=== PATIENT | female | born 1965 | race Caucasian/White ===

== ENCOUNTER 2019-03-23 10:11 | Inpatient (IN) | payer OTHER, MEDICARE ==
[~2019-03-23] VITALS: Ht 160 cm; Wt 90.3 kg
[2019-03-23 11:30] VITALS: BP 144/78
[2019-03-23 13:12] LABS: ABSOLUTE BASOPHILS 0.1 thou/uL (0.0-0.2); ABSOLUTE EOSINOPHILS 0.1 thou/uL (0.0-0.7); ABSOLUTE MONOCYTES 1.4 thou/uL (0.0-1.2); ABSOLUTE NEUTROPHILS 8.6 thou/uL (1.6-8.1); BASOPHILS 0.7 %; EOSINOPHILS 0.4 %; HEMATOCRIT 43.5 % (37.0-47.0); HEMOGLOBIN 14.3 gm/dL (12.0-15.0); LYMPHOCYTES 16.5 %; MCH 28.9 pg (26.0-34.0); MCHC 32.8 g/dL (28.0-37.0); MCV 88.4 fL (80.0-100.0); MONOCYTES 11.5 %; MPV 7.4 fl. (7.2-11.1); NUCLEATED RBCS 0 /100WBC; PLATELET COUNT* 382 thou/uL (150-400); POLYS 70.9 %; RBC 4.92 mil/uL (4.20-5.00); RDW-CV 13.6 % (10.5-14.5); WBC 12.2 thou/uL (4.0-11.0)
[2019-03-23 13:30] LABS: ALBUMIN 3.7 g/dL (3.4-5.0); CALCIUM 9.5 mg/dL (8.5-10.1); CREATININE 0.6 mg/dL (0.6-1.3); MAGNESIUM 2.1 mg/dL (1.8-2.4); POTASSIUM 3.9 mmol/L (3.5-5.1); TOTAL BILIRUBIN 0.4 mg/dL (<0.1-1.0); TOTAL PROTEIN 7.4 g/dL (6.4-8.2)
[2019-03-23 15:33] VITALS: BP 152/95
[2019-03-23] MEDS ORDERED: OMEPRAZOLE40 MG PO (18:06)
[2019-03-23] MEDS ORDERED: OXYBUTYNIN CHLO10 MG PO (18:07)
[2019-03-23] MEDS ORDERED: CELEXA 20 MG TA20 MG PO (18:08)
[2019-03-23] MEDS ORDERED: TRAMADOL 50 MG50 MG PO (18:10)
[2019-03-23] MEDS ORDERED: ZANAFLEX4 M1 PO (18:11)
[2019-03-23] MEDS ORDERED: AMITIZA 24 MCG24 MCG PO (18:12)
[2019-03-23] MEDS ORDERED: BUPROPION XL300 MG PO (18:13)
[2019-03-23] MEDS ORDERED: NASACORT10.8 ML SPRAY (18:14)
[2019-03-23] MEDS ORDERED: PHENTERMINE H37.5 MG PO (18:16)
[2019-03-23] MEDS ORDERED: SAXENDA3 MG/0.5 M SUBQ (18:17)
[2019-03-23 19:47] LABS: URINE BILIRUBIN NEGATIVE (Negative); URINE BLOOD NEGATIVE (Negative); URINE CLARITY CLEAR; URINE COLOR YELLOW; URINE GLUCOSE-RANDOM NEGATIVE (Negative); URINE KETONES 1+ (Negative); URINE LEUKOCYTES-REFLEX NEGATIVE (Negative); URINE NITRITE-REFLEX NEGATIVE (Negative); URINE PROTEIN TRACE (Negative); URINE SPECIFIC GRAVITY 1.025 (1.005-1.030); URINE UROBILINOGEN 0.2 E.U./dl (0.2-1.0)
--- NOTE | 2019-03-23 20:19 | NUR ---
PT ARRIVED DIRECT ADMIT, PATIENT A&OX4, ST ON TELE, STAND BY ASSIST, ORIENTED TO ROOM. UA COLLECTED, PATIENT HAD LOOSE STOOL, HOURLY ROUNDING PERFORMED, POSSESSSIONS AND CALL LIGHT WITHIN REACH. PATIENT REPORTS MALAISE.
[2019-03-24] VITALS: BP 115/75
[2019-03-24 04:00] VITALS: BP 141/82
--- NOTE | 2019-03-24 07:55 | NUR ---
ASSUMED PATIENT CARE AT 1900. ASSESSMENT COMPLETED CHARTED. PATIENT IS ST/SR ON THE MONITOR. HOURLY ROUNDING IN PLACE FOR PATIENT SAFETY. CLWR.
[2019-03-24 08:00] VITALS: BP 142/86
[2019-03-24 10:38] LABS: CALCIUM 8.9 mg/dL (8.5-10.1); CREATININE 0.6 mg/dL (0.6-1.3); MAGNESIUM 1.8 mg/dL (1.8-2.4); POTASSIUM 3.4 mmol/L (3.5-5.1)
[2019-03-24 11:48] VITALS: BP 131/81
[2019-03-24 16:00] VITALS: BP 154/86
--- NOTE | 2019-03-24 18:10 | NUR ---
PT VSS, ST ON TELE, STAND BY ASSIST, HOURLY ROUNDING PERFORMED, POSSESSIONS AND CALL LIGHT WITHIN REACH. PATIENT AMBULATES TO TOILET.
[2019-03-24 19:30] VITALS: BP 134/70
[2019-03-25] VITALS: BP 142/77
--- NOTE | 2019-03-25 05:08 | NUR ---
PT CARE ASSUMED AT 1930. SAT MAINTAINED IN RA. ALERT AND ORIENTED X4. PT IS PAINFUL. CALL LIGHT WITHIN REACH AND BED IN LOW POSITION. HOURLY ROUNDING DONE FOR PT SAFETY.
[2019-03-25 05:25] LABS: CALCIUM 9.1 mg/dL (8.5-10.1); CREATININE 0.6 mg/dL (0.6-1.3); HEMATOCRIT 40.6 % (37.0-47.0); HEMOGLOBIN 13.2 gm/dL (12.0-15.0); MAGNESIUM 1.8 mg/dL (1.8-2.4); MCH 28.8 pg (26.0-34.0); MCHC 32.4 g/dL (28.0-37.0); MCV 88.9 fL (80.0-100.0); MPV 7.2 fl. (7.2-11.1); POTASSIUM 3.9 mmol/L (3.5-5.1); RBC 4.57 mil/uL (4.20-5.00); RDW-CV 13.3 % (10.5-14.5); WBC 11.5 thou/uL (4.0-11.0)
[2019-03-25 07:00] VITALS: BP 145/84
--- NOTE | 2019-03-25 08:08 | NUR ---
INITAL ASSESSMENT COMPLETED CHARTED. VSS. PT C/O CHRONIC 8/10 PAIN IN LOW BACK AND LEFT LEG. PT UP INDEPENDENTLY WITH STEADY GAIT. PT DENIES CP, SOA, N/V/D. HOURLY ROUNDING FOR PT SAFETY. CLWR.
[2019-03-25] MEDS ORDERED: FLORASTOR250 MG PO (08:49)
[2019-03-25] MEDS ORDERED: LEVAQUIN 750 M750 MG PO (08:49)
[2019-03-25 09:54] VITALS: BP 145/84
== END 2019-03-25 11:20 | disposition home or self-care (01) | DRG 690 ==
LOC: M.2W 10:11
PROVIDERS: Internal Medicine; ADMIT Internal Medicine
DX: N39.0 Urinary tract infection, site not specified (principal); R65.10 Systemic inflammatory response syndrome (SIRS) of non-infectious origin without acute organ dysfunction; K52.1 Toxic gastroenteritis and colitis; F11.20 Opioid dependence, uncomplicated; E44.1 Mild protein-calorie malnutrition; G89.29 Other chronic pain; E66.9 Obesity, unspecified; K21.9 Gastro-esophageal reflux disease without esophagitis; F32.9 Major depressive disorder, single episode, unspecified; T50.905A Adverse effect of unspecified drugs, medicaments and biological substances, initial encounter; Y92.89 Other specified places as the place of occurrence of the external cause; Z68.35 Body mass index [BMI] 35.0-35.9, adult; Z88.0 Allergy status to penicillin; Z88.2 Allergy status to sulfonamides; Z91.040 Latex allergy status; Z23 Encounter for immunization

== ENCOUNTER 2019-04-09 11:15 | Inpatient (IN) | payer OTHER, MEDICARE ==
[~2019-04-09] VITALS: Ht 152.4 cm; Wt 80.3 kg
--- NOTE | ~2019-04-09 | PROC ---
[address] [address] PROCEDURE REPORT Name: NAYE LEW Room: [address] IN ..#: [id number] Admission: 04/09/19 Attend Phys: Kisha Dahl Discharge: Date of : 63 Report #: [id number] THIS REPORT FOR: //name// For GI report, please see the Provation report in Perceptive 7 content. By: 0822Medical Records Staff DESMOND /CRISTINO
--- NOTE | ~2019-04-09 | CON ---
[facility] [address] [place] [address] CONSULTATION Name: NAYE LEW Room: [address] IN M.R.#: [id number] Admission: 04/09/19 Attend Phys: Kisha Dahl Discharge: Date of : 63 Report #: [id number] THIS REPORT FOR: //name// CC: SUSAN Galo DO DATE OF SERVICE: 04/13/2019 REFERRING PHYSICIAN: Elkin Whatley DO REASON FOR CONSULTATION: Severe dysphagia. IMPRESSION: 1. Severe dysphagia and odynophagia with history of recurrent nausea and vomiting. 2. Abnormal CAT scan with a dilated distal esophagus and stomach of uncertain significance. 3. Chronic acid reflux with no previous upper endoscopy being done in the past. 4. Anemia of uncertain etiology. 5. Chronic constipation, exacerbated by chronic narcotics with the patient never having a colonoscopy in the past. 6. Complicated urinary tract infection. 7. Chronic cough. RECOMMENDATIONS: 1. We will proceed with upper endoscopy today. I have discussed the nature, risks, benefits and alternatives of the procedure with the patient as well and she is agreeable to the same. 2. Further recommendation will be made after the upper endoscopy has been completed. HISTORY OF PRESENT ILLNESS: The patient is a pleasant 54-year-old white female, who was admitted to the hospital with complaint that she is not feeling well. She has been treated for urinary tract infection and started having problem with chronic cough, stomach issues, body aches and it was felt that maybe she had the flu. Since being in the hospital, she has also developed issues with dysphagia and painful odynophagia. She does have chronic reflux, for which she takes omeprazole on a regular basis with a fairly good response, but this has been different. It has been difficult for her to swallow liquids as well as solids. She feels the things are not going down very well. She denies any nausea, vomiting, hematemesis, hematochezia. She has tendency towards constipation, for which she takes Amitiza to help with the same. She has never undergone previous studies of her upper and lower GI tract in the past. We are asked to see her for complaints [place] [address] CONSULTATION Name: NAYE LEW Room: [address] IN [facility]#: [id number] Admission: 04/09/19 Attend Phys: Kisha Dahl Discharge: Date of : 63 Report #: [id number] ALLERGIES: PENICILLIN, SULFA AND TAPE. MEDICATIONS: At this time include lisinopril, omeprazole, Celexa, tramadol, Zanaflex, Amitiza 24 mcg at bedtime, bupropion, Nasacort, phentermine, Saxenda, and omeprazole. PAST MEDICAL AND SURGICAL HISTORY: Remarkable for underlying hypertension, chronic pain syndrome, chronic constipation, exacerbated by chronic pain medicines. She has had previous low back injury and morphine pump. SOCIAL HISTORY: She quit smoking over a year ago, does not drink alcohol on a regular basis. FAMILY HISTORY: Negative. PHYSICAL EXAMINATION: GENERAL: A pleasant 54-year-old white female, who is awake and alert. CARDIOPULMONARY: Revealed a regular rate and rhythm. LUNGS: Clear. ABDOMEN: Soft and not tender. No rebound or guarding noted. LABORATORY DATA: Laboratory tests from 3rd revealed a white count of 8.4, hemoglobin of 8.8, platelet count 255,000, MCV 87.6, and RDW is 13.2. Her sodium 143, potassium 3.1, chloride 106, bicarbonate is 27, BUN is 9, creatinine is 0.6. Her bilirubin is 0.2, alkaline phosphatase is 65, AST 33, ALT 39, and albumin is only 2.2. CT scan of the abdomen and pelvis performed on 04/09/2019 revealed a fluid-filled distended esophagus and stomach of uncertain significance. DISCUSSION: At the present time, the patient has not only dysphagia, but odynophagia. We will proceed with upper endoscopy today and make further recommendations thereafter. By: [id number] Fernando Koenig DO /nt
[~2019-04-09 11:15] MED LIST: AMITIZA 24 MCG24 MCG PO; BUPROPION XL300 MG PO; CELEXA 20 MG TA20 MG PO; FLORASTOR250 MG PO; LEVAQUIN 750 M750 MG PO; NASACORT10.8 ML SPRAY; OMEPRAZOLE40 MG PO; OXYBUTYNIN CHLO10 MG PO; PHENTERMINE H37.5 MG PO; SAXENDA3 MG/0.5 M SUBQ; TRAMADOL 50 MG50 MG PO; ZANAFLEX4 M1 PO
[2019-04-09 11:19] VITALS: BP 85/49
[2019-04-09] MEDS ORDERED: ZESTRIL5 MG PO (11:22)
[2019-04-09 12:01] LABS: ABSOLUTE LYMPHOCYTES 1.9 thou/uL (0.8-5.3); ABSOLUTE MONOCYTES 1.2 thou/uL (0.0-1.2); ABSOLUTE NEUTROPHILS 12.2 thou/uL (1.6-8.1); BASOPHILS 0.2 %; HEMATOCRIT 38.6 % (37.0-47.0); HEMOGLOBIN 12.8 gm/dL (12.0-15.0); LYMPHOCYTES 12.3 %; MCH 29.2 pg (26.0-34.0); MCV 88.2 fL (80.0-100.0); MONOCYTES 7.8 %; MPV 7.4 fl. (7.2-11.1); NUCLEATED RBCS 0 /100WBC; PLATELET COUNT* 269 thou/uL (150-400); POLYS 79.7 %; RBC 4.38 mil/uL (4.20-5.00); RDW-CV 13.5 % (10.5-14.5); WBC 15.3 thou/uL (4.0-11.0)
[2019-04-09 12:12] LABS: CALCIUM 8.5 mg/dL (8.5-10.1); CREATININE 4.5 mg/dL (0.6-1.3)
[2019-04-09 12:13] LABS: PROTIME 10.3 Seconds (9.20-11.50)
[2019-04-09 12:21] LABS: ALBUMIN 3.4 g/dL (3.4-5.0); TOTAL BILIRUBIN 0.1 mg/dL (<0.1-1.0)
[2019-04-09 13:00] LABS: INFLUENZA A ANTIGEN Negative (Negative); INFLUENZA B ANTIGEN Negative (Negative)
[2019-04-09 17:02] VITALS: BP 94/62
[2019-04-09 18:00] VITALS: BP 106/54
--- NOTE | 2019-04-09 18:22 | NUR ---
ASSUMED PT CARE. PT ADMITTED FROM ER AT 1710 ACCOMPANIED BY ER NURSEO N BED. ON 4 L NC. PT O2 SATURATIOIN IS 93%. O2 TITRATED TO 3 LNC. VSS. TRACING SINUS TACHYCARDIA ON THE HEART MONITOR. HEART RATE 116. COMPLAINS OF APIN IN BACK LEVEL 8. ATE DINER AT BEDSIDE. ZOFRAN GIVEN PRIOR TO DINER. UA RESULT PENDING. NO FURTHER COMPLAINT. SEPSIS SCREENING. FALL PRECAUTION IN PLACE. CALL LIGHT AT REACH . WILL CONTINUE TO MONITOR
[2019-04-09 18:27] LABS: URINE BILIRUBIN NEGATIVE (Negative); URINE BLOOD 3+ (Negative); URINE CLARITY CLOUDY; URINE COLOR YELLOW; URINE GLUCOSE-RANDOM NEGATIVE (Negative); URINE KETONES TRACE (Negative); URINE LEUKOCYTES-REFLEX NEGATIVE (Negative); URINE NITRITE-REFLEX NEGATIVE (Negative); URINE PROTEIN 1+ (Negative); URINE SPECIFIC GRAVITY 1.025 (1.005-1.030); URINE UROBILINOGEN 0.2 E.U./dl (0.2-1.0)
[2019-04-09 18:35] LABS: HYALINE CASTS >10 Many /LPF (None Seen); MUCUS 0-3 Light strn/LPF (None Seen); SQUAMOUS >10 Many /LPF (0-3)
[2019-04-09 18:36] LABS: CRYSTALS None Seen /LPF (None Seen); URINE RBC 3-10 Few /HPF (0-2); URINE WBC-REFLEX 0-5 Rare /HPF (0-5)
--- NOTE | 2019-04-09 18:39 | NUR ---
TRAMADOL GIVEN FOR PAIN.
[2019-04-09 19:50] VITALS: BP 99/53
[2019-04-10] VITALS (7 sets, daily range): BP systolic 91–137; BP diastolic 47–81
[2019-04-10 04:39] LABS: ABSOLUTE LYMPHOCYTES 2.1 thou/uL (0.8-5.3); ABSOLUTE MONOCYTES 1.2 thou/uL (0.0-1.2); ABSOLUTE NEUTROPHILS 10.4 thou/uL (1.6-8.1); BASOPHILS 0.1 %; HEMATOCRIT 27.9 % (37.0-47.0); LYMPHOCYTES 15.4 %; MCH 29.7 pg (26.0-34.0); MCHC 32.9 g/dL (28.0-37.0); MCV 90.2 fL (80.0-100.0); MONOCYTES 8.6 %; MPV 7.3 fl. (7.2-11.1); NUCLEATED RBCS 0 /100WBC; POLYS 75.9 %; RBC 3.09 mil/uL (4.20-5.00); RDW-CV 13.3 % (10.5-14.5); WBC 13.7 thou/uL (4.0-11.0)
--- NOTE | 2019-04-10 04:48 | NUR ---
PT CARE ASSUMED AT 1930. SAT MAINTAINED IN O2. ALERT AND ORIENTED X4. C/O PAIN, MEDICATION GIVEN PER EMAR. CALL LIGHT WITHIN REACH AND BED IN LOW POSITION. PT'S BP IS ON THE SOFTER SIDE. HOURLY ROUNDING DONE FOR PT SAFETY.
[2019-04-10 04:54] LABS: ALBUMIN 2.2 g/dL (3.4-5.0); CALCIUM 7.2 mg/dL (8.5-10.1); POTASSIUM 4.5 mmol/L (3.5-5.1); TOTAL BILIRUBIN 0.1 mg/dL (<0.1-1.0); TOTAL PROTEIN 4.8 g/dL (6.4-8.2)
[2019-04-10 05:16] LABS: HEMOGLOBIN 9.2 gm/dL (12.0-15.0); PLATELET COUNT* 189 thou/uL (150-400)
[2019-04-10 05:44] LABS: CREATININE 1.7 mg/dL (0.6-1.3)
--- NOTE | 2019-04-10 10:13 | NUR ---
Pt is A&O. Resides at home with her . Independent. No DME. No hx of HH or SNF. Pt states that her PCP wants her to have HH at dc, d/t repeated hospitalizations. CM provided Pt with a HH list from her insurance website, Pt to let CM know which agency she wants to use. Following.
--- NOTE | 2019-04-10 13:09 | EKG ---
[place] [address] ELECTROCARDIOGRAM REPORT Name: NAYE LEW Room: [address] ADM IN [facility].#: [id number] Admission: 04/09/19 Attend Phys: Kisha Dahl Discharge: Date of : 63 Report #: [id number] THIS REPORT FOR: //name// 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: : 1965 Requested By: Ric Ramesh Order Number: [id number] MD: Lito Pickard Measurements Intervals [place] Rate: 121 P: 39 TN: 115 QRS: 80 QRSD: 98 T: -1 QT: 329 QTc: 467 Interpretive Statements Sinus tachycardia Borderline T abnormalities, inferior leads No previous ECG available for comparison Electronically Signed On 04-10-2019 13:09:13 SANITATION OFFICER by Lito Pickard [email or web address] <ELECTRONICALLY SIGNED> By: Lito Pickard MD, [facility] 04/10/19 1309 D: [id number] 20 Lito Pickard MD, FACC /EPI
--- NOTE | 2019-04-10 18:41 | NUR ---
PATIENT RESTING IN BED. VSS. IV FLUIDS PER ORDERS. PAITNET VERY TIRED TODAY. IV ABX PER ORDERS. HOURLY ROUNDING FOR PATINET SAFETY.
[2019-04-11] VITALS: BP 94/54
[2019-04-11 03:41] LABS: CALCIUM 7.3 mg/dL (8.5-10.1); POTASSIUM 3.7 mmol/L (3.5-5.1); TOTAL BILIRUBIN 0.2 mg/dL (<0.1-1.0); TOTAL PROTEIN 4.8 g/dL (6.4-8.2)
[2019-04-11 03:42] LABS: ABSOLUTE LYMPHOCYTES 2.3 thou/uL (0.8-5.3); ABSOLUTE MONOCYTES 1.1 thou/uL (0.0-1.2); ABSOLUTE NEUTROPHILS 7.4 thou/uL (1.6-8.1); BASOPHILS 0.2 %; EOSINOPHILS 0.2 %; HEMATOCRIT 25.6 % (37.0-47.0); HEMOGLOBIN 8.6 gm/dL (12.0-15.0); LYMPHOCYTES 21.1 %; MCH 29.6 pg (26.0-34.0); MCHC 33.4 g/dL (28.0-37.0); MCV 88.8 fL (80.0-100.0); MONOCYTES 10.2 %; MPV 7.2 fl. (7.2-11.1); NUCLEATED RBCS 0 /100WBC; PLATELET COUNT* 184 thou/uL (150-400); POLYS 68.3 %; RBC 2.89 mil/uL (4.20-5.00); WBC 10.8 thou/uL (4.0-11.0)
[2019-04-11 03:54] LABS: CREATININE 0.7 mg/dL (0.6-1.3)
[2019-04-11 04:00] VITALS: BP 135/83
--- NOTE | 2019-04-11 04:34 | NUR ---
PT IN BED, RESTING. PT REMAINS EXTREMELY WEAK. PT SR/ST ON MONITOR. CONTINUES ON MAINTENANCE IVFs AND ABX. PT STILL REQUIRING 3L O2 PER NC.
[2019-04-11 07:42] VITALS: BP 128/89
--- NOTE | 2019-04-11 07:47 | CON ---
[address] [address] CONSULTATION Name: NAYE LEW Room: [address] IN .R.#: [id number] Admission: 04/09/19 Attend Phys: Kisha Dahl Discharge: Date of : 63 Report #: [id number] THIS REPORT FOR: //name// CC: Cecy Whatley DATE OF SERVICE: 04/10/2019 INFECTIOUS DISEASE CONSULTATION ATTENDING PHYSICIAN: Elkin Whatley DO REASON FOR EVALUATION: Relapsing urinary tract infection, also has suspected pneumonitis. HISTORY OF PRESENT ILLNESS: Chart reviewed, patient examined. This is a 54-year-old woman, who is disabled due to chronic back pain with morphine pump, some degree of depression, who states a series of issues dating back to February. She was hospitalized apparently with a complicated urinary tract infection. She did initially receive systemic antibiotics, including levofloxacin and seemed to respond only to have appeared to be a relapse. She was retreated. She states she has never really resolved her symptoms of dysuria. Does have ongoing back pain. It is more severe than usual; however, more recently during this hospitalization, which was prompted by significant right-sided chest pain, it was seemed to be worsened with deep breathing, perhaps consistent pleuritic in nature and had weakness and ongoing cough productive of some colored sputum, nausea, vomiting, emesis. She was dyspneic. She was empirically started on cefepime and levofloxacin. She has not been febrile. She is not encephalopathic. Overall, she is a little improved over the course of 24 hours. ALLERGIES: LISTED TO PENICILLIN AND SULFA. CURRENT MEDICINES: Include cefepime, vancomycin, methylprednisolone, lisinopril, bupropion, citalopram, pantoprazole, p.r.n. analgesics, antiemetics, tizanidine. PAST MEDICAL HISTORY: Includes above noted chronic back pain, disability, depression, reflux. SOCIAL HISTORY: Former smoker. No ethanol. No illicit drug use. FAMILY HISTORY: Noncontributory. REVIEW OF SYSTEMS: Otherwise unremarkable with the exception [place] [address] CONSULTATION Name: NAYE LEW Room: [address]#: [id number] Admission: 04/09/19 Attend Phys: Kisha Dahl Discharge: Date of : 63 Report #: [id number] PHYSICAL EXAMINATION: GENERAL: Iatqwlwz-ga-fgvbdf distress. It is clear she has pain with any sort of breathing on the right side. Appears slightly malnourished. VITAL SIGNS: Temperature 98.8, pulse 96, respirations 20, blood pressure 108/52. SKIN: Warm. I do not appreciate any rashes. HEENT: Normocephalic. Extraocular muscles intact. NECK: Supple. LUNGS: Few scattered coarse breath sounds. HEART: Borderline tachycardic, seems to be irregular. I do not appreciate a murmur. There is no rubs. ABDOMEN: Soft, mild tenderness. There are no peritoneal signs. EXTREMITIES: Distal lower extremities were otherwise unremarkable. GENITOURINARY AND RECTAL: Deferred. LABORATORY DATA: Blood cultures sterile thus far. Most recent electrolytes: Sodium 136, potassium 4.5, chloride 105, bicarb is 23, anion gap of 8, BUN and creatinine 59 and 1.7, is actually down from 4.5 on admission. Glucose of 77. AST of 60, ALT of 36. Total protein of 4.8, albumin of 2.2. Estimated GFR of 31. CBC: White count of 13.7, H and H 9.2 and 27.9, and platelets of 189. Does have a total lymphocyte count of 2100. Troponin less than 0.06. Urinalysis: 1+ protein, 3+ blood, 0-5 white cells. Lactic acid initially 2.1, repeat was 1.9. Influenza antigen was negative. CT abdomen and pelvis showed mild bibasilar pulmonary infiltrates or atelectasis. Normal appearance of the kidneys. No renal or ureteral stone are no hydronephrosis or obstructive uropathy. ASSESSMENT: 1. Complicated urinary tract infection. It is not clear as to exactly why it has been so difficult to treat. We do not have any culture evidence. I think the cefepime should give us good coverage, including Pseudomonas. There is certainly a number of Gram-negative quinolone resistant. Urine culture is in progress. We will await those results. 2. Pneumonitis, although it is somewhat confusing. Changes suggest perhaps left-sided, but she is also exclusively right-sided signs and symptoms, certainly raises question of some sort of occult process. We will continue to evaluate for possible early varicella zoster and thoracic dermatome. Also, we will do CT of the chest to exclude some underlying issue that may suggest more pleuritic-type pain. Indeed if this is viral, it would be more symptomatic. We will continue empiric antibacterial at this point. She is not overtly toxic, but clear she is ill. Continue supportive symptomatic treatment. <ELECTRONICALLY SIGNED> By: Dalton Garcia MD 04/11/19 0747 [id number] [id number] Garcia MD /nt
[2019-04-11 16:46] VITALS: BP 138/82
--- NOTE | 2019-04-11 17:17 | NUR ---
PATIENT RESTING IN BED. VSS. IV FLUIDS AND ANTIBIOTICS INFUSING. COUGH WITH OCCASIONAL WHEEZES. 3L PER NASAL CANULA. HOULRY ROUNDING COMPLETED FOR PATIENT SAFETY.
[2019-04-11 20:00] VITALS: BP 141/84
[2019-04-12] VITALS (7 sets, daily range): BP systolic 103–155; BP diastolic 55–88
[2019-04-12 04:58] LABS: ABSOLUTE EOSINOPHILS 0.1 thou/uL (0.0-0.7); ABSOLUTE LYMPHOCYTES 2.3 thou/uL (0.8-5.3); ABSOLUTE MONOCYTES 0.8 thou/uL (0.0-1.2); ABSOLUTE NEUTROPHILS 5.2 thou/uL (1.6-8.1); BASOPHILS 0.2 %; EOSINOPHILS 1.2 %; HEMATOCRIT 26.4 % (37.0-47.0); HEMOGLOBIN 8.7 gm/dL (12.0-15.0); LYMPHOCYTES 27.1 %; MCHC 32.9 g/dL (28.0-37.0); MONOCYTES 9.3 %; MPV 7.2 fl. (7.2-11.1); NUCLEATED RBCS 0 /100WBC; PLATELET COUNT* 227 thou/uL (150-400); POLYS 62.2 %; RDW-CV 13.2 % (10.5-14.5); WBC 8.4 thou/uL (4.0-11.0)
[2019-04-12 05:30] LABS: ALBUMIN 2.2 g/dL (3.4-5.0); CALCIUM 7.3 mg/dL (8.5-10.1); CREATININE 0.6 mg/dL (0.6-1.3); TOTAL BILIRUBIN 0.2 mg/dL (<0.1-1.0); TOTAL PROTEIN 5.3 g/dL (6.4-8.2)
--- NOTE | 2019-04-12 06:30 | NUR ---
AWAKE OFF AND ON DURING NOC, C/O NAUSEA FIRST PART OF SHIFT, ZOFRAN 4MG IVP GIVEN AND EFFECTIVE PER PT VERBALIZATION, C/O BACK PAIN AND LLE PAIN, MORPHINE 2MG X2 IVP AND ULTRAM 50MG PO X1 HELPFUL FOR PAIN MANAGEMENT, C/O SORE THROAT THIS AM, THROAT PAIN WORSE WITH SWALLOWING FEELS LIKE LIQUID AND FOOD "GETTING STUCK" AND CAUSING INCREASED PAIN, UP TO BR WITH SLOW STEADY GAIT, OXYGEN 3L PER NC, DENIES SOA, NSR HR 80'S TO 90'S TRACING APPLIQUE CUTTER, AFEBRILE, NS 150CC/HR VIA INFUSION PUMP PER ORDER, NO ADVERSE EFFECTS IV ABT'S NOTED, GLUCOSE 66 PER LAB DRAW THIS AM, RECHECKED VIA GLUCOMETER RESULT-63, REFUSING ORANGE JUICE, TOLERATED APPLE JUICE AND CRANBERRY JUICE, RECHECKED FSBS, GLUCOSE INCREASED TO 79, AWAKE, ALERT AND CONVERSATIVE THIS AM. CALL LIGHT IN REACH.
--- NOTE | 2019-04-12 14:06 | NUR ---
CONTINUE TO FOLLOW, MET WITH PT. STATES STILL NOT BACK TO BASELINE. DISCUSSED HH AND SHE CHOSE [facility] OR [facility]. CALLED [facility], THEY DECLINED D/T NOT ACCEPTING COMMERCIAL INSURANCE AT THIS TIME. CALL TO [facility], FAXED INITIAL REFERRAL TO [facility]. THEY ACCEPT [employer] AND WILL TAKE [place] AT [place]. WILL FOLLOW
--- NOTE | 2019-04-12 18:40 | NUR ---
PT UP TO BATHROOM INDEPENDENTLY. PT C/O PAIN WHEN SWALLOWING, PAIN IN LEG AND NAUSEA TODAY, PRN MEDICATIONS GIVEN PER ORDER.
[2019-04-13] VITALS (7 sets, daily range): BP systolic 111–144; BP diastolic 59–89
--- NOTE | 2019-04-13 02:00 | NUR ---
ASSUMED CARE OF PT AT 1900. PT IS ALERT AND ORIENTED. VSS. PERRLA. PT IS ON 3 LITERS OF O2. PT REPORTS ONGOING PAIN. PT RECIEVING MORPHINE FOR PAIN. PT IS IN SINUS RYTHM ON THE TELEMETRY. PT IS RESTING COMFORTABLY IN BED. RESPIRATIONS ARE EVEN AND NONLABORED. WILL CONTINUE TO MONITOR PT.
[2019-04-13 05:52] LABS: ABSOLUTE EOSINOPHILS 0.1 thou/uL (0.0-0.7); ABSOLUTE LYMPHOCYTES 2.6 thou/uL (0.8-5.3); ABSOLUTE MONOCYTES 0.9 thou/uL (0.0-1.2); ABSOLUTE NEUTROPHILS 4.7 thou/uL (1.6-8.1); BASOPHILS 0.4 %; EOSINOPHILS 1.6 %; HEMATOCRIT 26.3 % (37.0-47.0); HEMOGLOBIN 8.8 gm/dL (12.0-15.0); LYMPHOCYTES 30.8 %; MCH 29.4 pg (26.0-34.0); MCHC 33.6 g/dL (28.0-37.0); MCV 87.6 fL (80.0-100.0); MONOCYTES 11.1 %; NUCLEATED RBCS 0 /100WBC; PLATELET COUNT* 255 thou/uL (150-400); POLYS 56.1 %; RDW-CV 13.2 % (10.5-14.5); WBC 8.4 thou/uL (4.0-11.0)
[2019-04-13 06:00] LABS: CALCIUM 7.1 mg/dL (8.5-10.1); CREATININE 0.6 mg/dL (0.6-1.3); POTASSIUM 3.1 mmol/L (3.5-5.1)
[2019-04-13 06:16] LABS: PREALBUMIN 13.7 mg/dL (18.0-35.7)
--- NOTE | 2019-04-13 09:34 | NUR ---
ASSUMED CARE OF PT AT 0730. PT LYING IN BED. NPO FOR GI CONSULT. PLAN IS FOR EGD AT 1000. CONSENT SIGNED AND PLACED IN FRONT OF CHART. PACU STAFF HERE TO GET PT AT THIS TIME. A&0X4, COMPLAINS OF CHRONIC BACK PAIN- PAIN PUMP IN PLACE AND LIDOCAINE PATCH PLACED TO BACK WELL. PT GIVEN PAIN MEDICATION BY NOC SHIFT WITH PARTIAL RELIEF. TRACING SR ON THE HAT CHECKER. ON 2L NC SAT 95%. DENIES ANY SHORTNESS OF BREATH. IVF. PT UP AD VILMA IN ROOM. PT GOAL FOR TODAY IS PAIN MGMT, EGD, REPLACE POTASSIUM AND MAGNESIUM PER ELECTROLYTE PROTOCOL. AM ASSESSMENT CHARTED. MEDICATIONS PER JUN. PT REPOSITIONS SELF. HOURLY ROUNDING OBSERVED. BED IN LOW POSITION. CALL LIGHT WITHIN REACH. WILL CONTINUE PLAN OF CARE.
--- NOTE | 2019-04-13 14:36 | NUR ---
CONTINUE TO FOLLOW, PT NOT READY FOR DC TODAY, BUT WILL NEED HH AT DC THEY WILL NEED CALLED AND ORDERS FAXED TO: [facility] [phone] FAX [phone]
--- NOTE | 2019-04-13 19:05 | NUR ---
NO ACUTE CHANGES THROUGHOUT SHIFT.REFER TO CHARTING. PT HAD EGD TODAY-REFER TO RESULTS. PT STARTED ON PROTONIX, CARAFATE, DIFLUCAN AND ACYCLOVIR. NEW IV PLACED TO RIGHT FOREARM. PT MADE MED SURG STATUS. CONTINUES TO BE ON 2L NC SAT UPPER 90'S. DENIES ANY SHORTNESS OF BREATH. PT COMPLAINED OF NAUSEA THIS AFTERNOON-TREATED WITH PRN ZOFRAN WITH RELIEF. PT COMPLAINED OF PAIN TO BACK AND LLE LATE AFTERNOON-TREATED WITH PRN TRAMADOL WITH PARTIAL RELIEF. IVF. POTASSIUM AND MAGNESIUM BEING REPLACED PER ELECTROLYTE PROTOCOL. PT TOLERATING FULL LIQUIDS WELL. SLOWLY PROGRESSING TOWARDS GOALS. MEDICATIONS PER JUN. PT REPOSITIONS SELF. HOURLY ROUNDING OBSERVED. BED IN LOW POSITION. CALL LIGHT WITHIN REACH. WILL CONTINUE PLAN OF CARE.
[2019-04-14] VITALS: BP 130/58
[2019-04-14 04:35] LABS: ABSOLUTE BASOPHILS 0.1 thou/uL (0.0-0.2); ABSOLUTE EOSINOPHILS 0.2 thou/uL (0.0-0.7); ABSOLUTE LYMPHOCYTES 3.5 thou/uL (0.8-5.3); ABSOLUTE MONOCYTES 1.3 thou/uL (0.0-1.2); ABSOLUTE NEUTROPHILS 5.2 thou/uL (1.6-8.1); BASOPHILS 0.8 %; EOSINOPHILS 2.3 %; HEMATOCRIT 27.2 % (37.0-47.0); HEMOGLOBIN 9.2 gm/dL (12.0-15.0); LYMPHOCYTES 34.1 %; MCH 29.5 pg (26.0-34.0); MCHC 33.7 g/dL (28.0-37.0); MCV 87.7 fL (80.0-100.0); MONOCYTES 12.8 %; MPV 6.8 fl. (7.2-11.1); NUCLEATED RBCS 0 /100WBC; PLATELET COUNT* 312 thou/uL (150-400); RDW-CV 13.3 % (10.5-14.5); WBC 10.4 thou/uL (4.0-11.0)
[2019-04-14 04:48] LABS: ALBUMIN 2.6 g/dL (3.4-5.0); CALCIUM 7.9 mg/dL (8.5-10.1); CREATININE 0.7 mg/dL (0.6-1.3); TOTAL BILIRUBIN 0.2 mg/dL (<0.1-1.0); TOTAL PROTEIN 5.9 g/dL (6.4-8.2)
[2019-04-14 04:49] LABS: POTASSIUM 4.4 mmol/L (3.5-5.1)
[2019-04-14 06:16] LABS: ESR (SEDRATE) 45 mm/hr (0-30)
--- NOTE | 2019-04-14 07:53 | NUR ---
PT IS ABLE TO COMMUNICATE HER NEEDS TO STAFF EFFECTIVELY. CURRENT PAIN MEDICATION REGIMEN HAS BEEN MARGINALLY ADEQUATE FOR CONTROLLING HER PAIN UP TO THIS TIME; SHE HAS BEEN ASKING FOR PRN PAIN MEDS WHEN THEY ARE DUE. MED/SURG, NON-TELEMETRY STATUS AT THIS TIME. FULL LIQUIDS RIGHT NOW; MD MAY DECIDE TO ADVANCE DIET TODAY. POSSIBLE DISCHARGE TODAY.
[2019-04-14 08:00] VITALS: BP 120/82
[2019-04-14] MEDS ORDERED: ROXICODONE15 M1 PO (09:40)
[2019-04-14 12:00] VITALS: BP 126/76
[2019-04-14 16:00] VITALS: BP 135/95
--- NOTE | 2019-04-14 16:06 | NUR ---
ASSUMED CARE OF PT AT 0730. PT RESTING IN BED WAITING FOR BREAKFAST. A&0X4, COMPLAINED OF PAIN TO BACK AND LEFT LEG- TREATED WITH PRN MORPHINE WITH PARTIAL RELIEF. PT STATES SHE ALSO TAKES OXYCODONE 15MG PO Q6H PRN FOR BREAKTHROUGH PAIN AT HOME. PT COMPLAINED OF NAUSEA THIS AFTERNOON-TREATED WITH PRN ZOFRAN WITH RELIEF. MED SURG STATUS. ON 2L NC SAT 95%. PRN DULCOLAX GIVEN PT STATES SHE HASNT HAD A BOWEL MOVEMENT IN 5 DAYS. PT DIET ADVANCED TO SOFT- PT TOLERATING WELL. IVF. PT UP AD VILMA IN ROOM. PT GOAL FOR TODAY IS PAIN AND NAUSEA MGMT, IV ANTIBIOTICS, IVF AND REPLACING MAGNESIUM PER ELECTROLYTE PROTOCOL. AM ASSESSMENT CHARTED. MEDICATIONS PER MAR. PT REPOSITIONS SELF. HOURLY ROUNDING OBSERVED. BED IN LOW POSITION. CALL LIGHT WITHIN REACH. WILL CONTINUE PLAN OF CARE.
[2019-04-14 20:44] VITALS: BP 135/71
[2019-04-14 23:58] VITALS: BP 110/64
[2019-04-15 06:17] LABS: ABSOLUTE EOSINOPHILS 0.2 thou/uL (0.0-0.7); ABSOLUTE MONOCYTES 1.4 thou/uL (0.0-1.2); ABSOLUTE NEUTROPHILS 5.8 thou/uL (1.6-8.1); BASOPHILS 0.4 %; EOSINOPHILS 2.1 %; HEMATOCRIT 26.4 % (37.0-47.0); HEMOGLOBIN 8.9 gm/dL (12.0-15.0); LYMPHOCYTES 28.5 %; MCH 29.8 pg (26.0-34.0); MCHC 33.8 g/dL (28.0-37.0); MCV 88.1 fL (80.0-100.0); MONOCYTES 13.5 %; MPV 7.2 fl. (7.2-11.1); NUCLEATED RBCS 0 /100WBC; PLATELET COUNT* 336 thou/uL (150-400); POLYS 55.5 %; RDW-CV 13.5 % (10.5-14.5); WBC 10.5 thou/uL (4.0-11.0)
[2019-04-15 06:26] LABS: ALBUMIN 2.5 g/dL (3.4-5.0); CALCIUM 8.1 mg/dL (8.5-10.1); CREATININE 0.6 mg/dL (0.6-1.3); POTASSIUM 4.1 mmol/L (3.5-5.1); TOTAL BILIRUBIN 0.1 mg/dL (<0.1-1.0); TOTAL PROTEIN 5.5 g/dL (6.4-8.2)
[2019-04-15 08:00] VITALS: BP 125/62
--- NOTE | 2019-04-15 08:21 | NUR ---
PT IS ABLE TO COMMUNICATE HER NEEDS TO STAFF EFFECTIVELY. CURRENT PAIN MEDICATION REGIMEN HAS BEEN ADEQUATE FOR CONTROLLING HER PAIN UP TO THIS TIME; SHE DID AVOID TAKING ANY IV MORPHINE OVERNIGHT. POSSIBLE DISCHARGE LATER TODAY.
--- NOTE | 2019-04-15 09:00 | NUR ---
ASSUMED CARE OF PT AT 0730. PT RESTING IN BED. A&0X4, COMPLAINS OF PAIN TO HEAD-TREATED WITH PRN MORPHINE WITH PARTIAL RELIEF. ALTERNATIVE MEASURES USED WELL- HEATING PAD AND REPOSITIONING. PT MED SURG STATUS- ON 2L NC SAT UPPER 90'S. DENIES ANY SHORTNESS OF BREATH. PT UP AD VILMA IN ROOM. IVF. PT STATES SHE HAD A BOWEL MOVEMENT LAST NIGHT. IVF. PT GOAL FOR TODAY IS GI AND ID CONSULT IN PLACE, TITRATE OXYGEN, WORK WITH PHYSICAL THERAPY AND PAIN MGMT. AM ASSESSMENT CHARTED. MEDICATIONS PER JUN. PT REPOSITIONS SELF. HOURLY ROUNDING OBSERVED. BED IN LOW POSITION. CALL LIGHT WITHIN REACH. WILL CONTINUE PLAN OF CARE.
[2019-04-15 12:00] VITALS: BP 140/85
[2019-04-15 16:00] VITALS: BP 132/79
--- NOTE | 2019-04-15 18:38 | NUR ---
CTA RESULTS BACK- BILATERAL LOWER LOBE PULMONARY EMBOLI NOTED. DR RAMIREZ NOTIFIED. ORDERS RECEIVED TO START ELIQUIS BID, BILATERAL VENOUS ULTRASOUND TO LE'S AND ECHO. PT CONTINUES TO BE ON 2L NC SAT UPPER 90'S. TRACING SR/ST ON THE WASTE MACHINE OFFBEARER. IVF DISCONTINUED-SL. MEDICATIONS PER JUN. PT REPOSITIONS SELF. HOURLY ROUNDING OBSERVED. BED IN LOW POSITION. CALL LIGHT WITHIN REACH. WILL CONTINUE PLAN OF CARE.
[2019-04-15 19:50] VITALS: BP 134/73
[2019-04-16] VITALS: BP 97/54
--- NOTE | 2019-04-16 03:18 | NUR ---
ASSUMED CARE OF PT AT 1900. PT IS ALERT AND ORIENTED. VSS. PERRLA. PT IS UP AD VILMA. PT IS IN SINUS RYTHM ON THE TELEMETRY. PT IS RESTING COMFORTABLY IN BED. RESPIRATIONS ARE EVEN AND NONLABORED. WILL CONTINUE TO MONITOR PT.
[2019-04-16 04:00] VITALS: BP 127/79
[2019-04-16 04:51] LABS: ABSOLUTE EOSINOPHILS 0.2 thou/uL (0.0-0.7); ABSOLUTE LYMPHOCYTES 3.1 thou/uL (0.8-5.3); ABSOLUTE MONOCYTES 1.2 thou/uL (0.0-1.2); BASOPHILS 0.4 %; EOSINOPHILS 1.8 %; HEMATOCRIT 26.6 % (37.0-47.0); HEMOGLOBIN 9.1 gm/dL (12.0-15.0); LYMPHOCYTES 36.7 %; MCH 30.4 pg (26.0-34.0); MCHC 34.3 g/dL (28.0-37.0); MCV 88.6 fL (80.0-100.0); MONOCYTES 14.4 %; MPV 6.8 fl. (7.2-11.1); NUCLEATED RBCS 0 /100WBC; PLATELET COUNT* 371 thou/uL (150-400); POLYS 46.7 %; RDW-CV 13.6 % (10.5-14.5); WBC 8.6 thou/uL (4.0-11.0)
[2019-04-16 05:14] LABS: CREATININE 0.7 mg/dL (0.6-1.3); POTASSIUM 3.9 mmol/L (3.5-5.1)
[2019-04-16 08:00] VITALS: BP 141/83
--- NOTE | 2019-04-16 12:29 | NUR ---
ASSUMED CARE OF PT AT 0730. PT RESTING IN BED. A&0X4, COMPLAINS OF PAIN TO HEAD. TREATED WITH PRN TRAMADOL WITH RELIEF. AT BEDSIDE. PT TRACING SR/ST ON THE CORRESPONDENCE ANALYST. PT WORKED WITH PHYSICAL THERAPY THIS AM HEART RATE NOTED TO GET UP TO 130 WITH ACTIVITY-AT REST HEART RATE BACK DOWN TO 110'S. PT ON 2L NC SAT UPPER 90'S. DENIES ANY SHORTNESS OF BREATH AT REST. PT UP AD VILMA IN ROOM. PT GOAL FOR TODAY IS COMPLETE ECHO, VENOUS US, PAIN MGMT, ADVANCE DIET TOLERATED AND INCREASE ACTIVITY. AM ASSESSMENT CHARTED. MEDICATIONS PER JUN. PT REPOSITIONS SELF. HOURLY ROUNDING OBSERVED. BED IN LOW POSITION. CALL LIGHT WITHIN REACH. WILL CONTINUE PLAN OF CARE.
[2019-04-16 12:30] VITALS: BP 127/80
--- NOTE | 2019-04-16 15:16 | EKG ---
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 Firer: : 1965 Requested By: Elkin Whatley Order Number: [id number] Reading MD: Lito Pickard Measurements Intervals [place] Rate: 105 P: 27 [place]: 111 QRS: -1 QRSD: 86 T: -9 QT: 336 QTc: 445 Interpretive Statements Sinus tachycardia Left ventricular hypertrophy Borderline T abnormalities, diffuse leads Compared to ECG 04/09/2019 11:21:34 Left ventricular hypertrophy now present T-wave abnormality still present Electronically Signed On 04-16-2019 15:15:26 OPERATIONS CLERK by Lito Pickard [email or web address] <ELECTRONICALLY SIGNED> By: Lito Pickard MD, [facility] 04/16/19 1515 1006 [id number] Lito Pickard MD, [facility] /EPI
--- NOTE | 2019-04-16 15:44 | NUR ---
Spoke with , Pt will need Eliquis [place] [facility], to provide Pt with Eliquis copay card. Pt continues to want HH at [place]. Pt to [facility] once cleared by ID.
--- NOTE | 2019-04-16 17:27 | 2DMMODE ---
[place] [address] 2 D/M-MODE ECHOCARDIOGRAM Name: NAYE LEW Room: [address] IN [facility]#: [id number] Admission: 04/09/19 Attend Phys: Elkin Whatley Discharge: Date of : 63 Date of Service: 04/16/19 1726 Report #: [id number] THIS REPORT FOR: //name// APPROVED REPORT Study performed: 04/16/2019 14:26:14 EXAM: Comprehensive 2D, Doppler, and color-flow Echocardiogram Patient Location: In-Patient Room #: [facility] BSA: 1.79 HR: 106 bpm BP: 141/83 mmHg Other Information Study Quality: Good Indications Pulmonary Embolism 2D Dimensions IVSd: 11.05 (7-11mm) LVOT Diam: 20.30 (18-24mm) LVDd: 40.42 mm PWd: 11.14 (7-11mm) Ascending Ao: 27.04 (22-36mm) LVDs: 30.29 (25-40mm) Aortic Root: 26.06 mm Volumes Left Atrial Volume (Systole) LA ESV Index: 15.30 mL/m2 Aortic Valve AoV Peak Kalin.: 1.31 m/s AO Peak Gr.: 6.84 mmHg LVOT Max P.43 mmHg AO Mean Gr.: 3.62 mmHg LVOT Mean P.04 mmHg LVOT Max V: 1.05 m/s AO V2 VTI: 19.84 cm LVOT Mean V: 0.65 m/s ZAC (VTI): 2.65 cm2 LVOT V1 VTI: 16.22 cm Mitral Valve E/A Ratio: 0.85 MV Decel. Time: 182.33 ms MV E Max Kalin.: 0.55 m/s MV PHT: 52.88 [place] [address] 2 D/M-MODE ECHOCARDIOGRAM Name: NAYE LEW Room: [address] IN [facility].#: [id number] Admission: 04/09/19 Attend Phys: Elkin Whatley Discharge: Date of : 63 Date of Service: 04/16/19 1726 Report #: [id number] MVA (PHT): 4.16 cm2 TDI E/Lateral E': 6.11 E/Medial E': 6.11 Medial E' Kalin.: 0.09 m/s Lateral E' Kalin.: 0.09 m/s Pulmonary Valve PV Peak Kalin.: 1.10 m/s PV Peak Gr.: 4.84 mmHg Tricuspid Valve RAP Estimate: 5.00 mmHg TR Peak Gr.: 21.01 mmHg RVSP: 26.01 mmHg PA Pressure: 26.01 mmHg Left Ventricle The left ventricle is normal size. There is normal LV segmental wall motion. There is normal left ventricular wall thickness. Left ventricular systolic function is normal. The left ventricular ejection fraction is within the normal range. LVEF is 55-60%. Grade I - abnormal relaxation pattern. Right Ventricle The right ventricle is normal size. The right ventricular systolic function is normal. Atria The left atrium size is normal. The right atrium size is normal. Aortic Valve The aortic valve is normal in structure. No aortic regurgitation is present. There is no aortic valvular stenosis. Mitral Valve The mitral valve is normal in structure. There is no mitral valve regurgitation noted. No evidence of mitral valve stenosis. Tricuspid Valve The tricuspid valve is normal in structure. Mild tricuspid regurgitation. Pulmonic Valve The pulmonary valve is normal in structure. There is no pulmonic [place] [address] 2 D/M-MODE ECHOCARDIOGRAM Name: NAYE LEW Room: [address]#: [id number] Admission: 04/09/19 Attend Phys: Elkin Whatley Discharge: Date of : 63 Date of Service: 04/16/19 1726 Report #: [id number] Great Vessels The aortic root is normal in size. The inferior vena cava is not well visualized. Pericardium There is no pericardial effusion. <Conclusion> Left ventricular systolic function is normal. The left ventricular ejection fraction is within the normal range. <ELECTRONICALLY SIGNED> By: Lito Pickard MD, [facility] 04/16/191725 25 25 Lito Pickard MD, [facility] /INF
--- NOTE | 2019-04-16 17:40 | NUR ---
NO ACUTE CHANGES THROUGHOUT SHIFT. REFER TO CHARTING. PT PROGRESSING TOWARDS GOALS. PT HAD ECHO TODAY-EF 55-60%, PT HAD VENOUS ULTRASOUND-AWAITING RESULTS. PROBABLE DISCHARGE HOME TOMORROW 04/17. DENIES ANY PAIN OR SHORTNESS OF BREATH THROUGHOUT AFTERNOON. PT AND SON AT BEDSIDE THROUGHOUT SHIFT. 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 ON 2L NC SAT UPPER 90'S. TOLERATING SOFT DIET. MEDICATIONS PER JUN. PT REPOSITIONS SELF. HOURLY ROUNDING OBSERVED. BED IN LOW POSITION. CALL LIGHT WITHIN REACH. WILL CONTINUE PLAN OF CARE.
[2019-04-16 18:12] VITALS: BP 135/86
[2019-04-16 20:00] VITALS: BP 112/78
[2019-04-17] VITALS: BP 139/85
[2019-04-17 04:00] VITALS: BP 109/77
[2019-04-17 04:53] LABS: ABSOLUTE EOSINOPHILS 0.1 thou/uL (0.0-0.7); ABSOLUTE LYMPHOCYTES 3.3 thou/uL (0.8-5.3); ABSOLUTE NEUTROPHILS 3.3 thou/uL (1.6-8.1); BASOPHILS 0.5 %; EOSINOPHILS 1.9 %; HEMATOCRIT 26.6 % (37.0-47.0); MCH 30.1 pg (26.0-34.0); MCHC 33.6 g/dL (28.0-37.0); MCV 89.4 fL (80.0-100.0); MONOCYTES 13.4 %; MPV 6.8 fl. (7.2-11.1); NUCLEATED RBCS 0 /100WBC; PLATELET COUNT* 387 thou/uL (150-400); POLYS 42.2 %; RBC 2.98 mil/uL (4.20-5.00); RDW-CV 13.5 % (10.5-14.5); WBC 7.8 thou/uL (4.0-11.0)
[2019-04-17 05:21] LABS: CALCIUM 8.3 mg/dL (8.5-10.1); CREATININE 0.7 mg/dL (0.6-1.3); POTASSIUM 3.8 mmol/L (3.5-5.1)
--- NOTE | 2019-04-17 07:20 | NUR ---
CHANGE OF SHIFT, BEDSIDE REPORT GIVEN PATIENT SEEN AT BEDSIDE, IN BED ASLEEP ASSUMED PATIENT CARE
[2019-04-17 07:45] VITALS: BP 124/68
--- NOTE | 2019-04-17 08:08 | NUR ---
ASSUMED PATIENT CARE AT 1900. ASSESSMENT COMPLETED CHARTED. PATIENT IS NSR ON THE MONITOR. HOURLY ROUNDING IN PLACE FOR PATIENT SAFETY. CLWR.
[2019-04-17 11:30] VITALS: BP 124/85
[2019-04-17] MEDS ORDERED: ELIQUIS5 MG PO (12:11)
[2019-04-17] MEDS ORDERED: ZANAFLEX4 M1 PO (12:34)
[2019-04-17] MEDS ORDERED: NASACORT10.8 ML INH (12:37)
[2019-04-17 12:39] VITALS: BP 136/86
[2019-04-17] MEDS ORDERED: CARAFATE 1 GM TA1 GM PO (12:55)
[2019-04-17] MEDS ORDERED: CEFDINIR300 MG PO (13:41)
[2019-04-17] MEDS ORDERED: VALTREX1000 MG PO (13:42)
--- NOTE | 2019-04-17 13:55 | NUR ---
SPOKE TO PT ABOUT HOME 02. PT WILL NEED O2 WITH [employer]. PAPERWORK FAXED TO [facility]. WILL AWAIT O2 DELIVERY FOR DC
--- NOTE | 2019-04-17 15:45 | NUR ---
DISCHARGE TO HOME WITH H/H AND OXYGEN SET UP AND DELIVERED DISCHARGE INSTRUCTIONS GIVEN, REVIEWED AND ACKNOWLEDGED AND SIGNED COPIES GIVEN IV AND HEART MONITOR REMOVED PERSONAL BELONGINGS RETURNED PATIENT ASSISTED OUT VIA WC TO WAITING CAR
--- NOTE | 2019-04-18 10:36 | NUR ---
RECEIVED CALL FROM [facility] IN [place] ABOUT PRIOR AUTHORIZATION OF ELIQUIS. NUMBER PROVIDED TO CALL FOR PRIOR AUTH. SPOKE TO PT'S INSURANCE CO WHO STATED THAT THEY HAVE ALREADY DISCUSSED WITH PT AND WILL SEND FORM TO DR CARPENTER OFFICE THEY PREFER PT'S PCP OVER A HOSPITALIST.
--- NOTE | 2019-04-18 21:06 | PATH ---
[facility] [address] [place] [address] PATHOLOGY RPT PROCEDURE Name: CALLIE ROLLINS Room: [address] IN .R.#: [id number] Admission: 04/09/19 Date of : 63 Discharge: 04/17/19 Report #: [id number] Path Case #: [id number] [facility] Accession Number: [id number] . 01 Material submitted: . PART A: esophagus - ESOPHAGEAL BIOPSY AT 34CM PART B: esophagus - ESOPHAGEAL BIOPSY AT 28CM . 01 Clinical history: . None provided . 02 Diagnosis: A. Esophagus, 34 cm, biopsy: - Squamous epithelium with ulceration and acute ulcer exudate. . B. Esophagus, 28 cm, biopsy: - Scant squamous epithelium with ulceration and abundant acute ulcer exudate. . (Please see comment). . (MARKEL:panda; 04/17/2019) JEREMIAH 04/17/2019 1027 Local . 02 Comment: HSV immunostains and a PAS-fungal stain have been ordered on blocks A1 and A2 and they are pending at this time. . The results will be issued in an addendum report. . . 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 *This test was developed and its performance characteristics determined by [facility]. It has not been cleared or approved by the U.S. Food and Drug Administration. The FDA has determined that such clearance or approval is not necessary. This test is used for clinical purposes. It should not be regarded as investigational or for research. This laboratory is certified under the Clinical Laboratory Improvement Amendments of 1988 (CLIA) as qualified to perform high complexity clinical laboratory testing. . 02 Electronically signed: . Pieter Singh MD, Pathologist NPI- [id number] . 01 Gross description: . A. Received in formalin labeled "Callie Rollins, esophageal biopsy at [address] [place] [address] PATHOLOGY RPT PROCEDURE Name: CALLIE ROLLINS Room: [address] IN [facility].#: [id number] Admission: 04/09/19 Date of : 63 Discharge: 04/17/19 Report #: [id number] Path Case #: [id number] cm, evaluate for HSV," is a single segment of matthew soft tissue measuring 0.5 cm in maximum dimension. The specimen is entirely submitted in cassette A1. . B. Received in formalin labeled "Callie Rollins, esophagus biopsy at 28 cm, evaluate for HSV," is a single segment of matthew soft tissue measuring 0.2 cm in maximum dimension. The specimen is entirely submitted in cassette B1. (TSD; 04/13/2019) TOB/TOB 04/13/2019 1928 Local . 02 Pathologist provided ICD-10: K22.10 . 02 CPT . 538425, 788904, A69008 Specimen Comment: A courtesy copy of this report has been sent to [phone], [phone] Specimen Comment: [phone], Specimen Comment: Report sent to ,DR CARPENTER / DR VARGAS Specimen Comment: A duplicate report has been generated due to demographic updates. Performed at: 01 [facility] [address] [id number] MD Eugene Shea MD Phone: [phone] Performed at: [address] [id number] MD Chas Rodriguze MD Phone: [phone]
== END 2019-04-17 17:44 | disposition home or self-care (01) | DRG 871 ==
LOC: M.ERS 11:15 → M.2W 12:30 → M.TBA-ER 12:30 → M.2W 17:17
PROVIDERS: Emergency Medicine; Internal Medicine; Internal Medicine Gastroenterology; ADMIT Internal Medicine
PROC: 0DB58ZX Excision of Esophagus, Via Natural or Artificial Opening Endoscopic, Diagnostic (ICD-10-PCS; principal; 2019-04-11)
DX: A41.9 Sepsis, unspecified organism (principal); J18.9 Pneumonia, unspecified organism; J96.90 Respiratory failure, unspecified, unspecified whether with hypoxia or hypercapnia; I26.99 Other pulmonary embolism without acute cor pulmonale; N39.0 Urinary tract infection, site not specified; N17.9 Acute kidney failure, unspecified; F11.20 Opioid dependence, uncomplicated; L02.91 Cutaneous abscess, unspecified; K22.10 Ulcer of esophagus without bleeding; F32.9 Major depressive disorder, single episode, unspecified; K21.9 Gastro-esophageal reflux disease without esophagitis; E86.0 Dehydration; G89.29 Other chronic pain; M54.9 Dorsalgia, unspecified; R13.10 Dysphagia, unspecified; D64.9 Anemia, unspecified; K59.09 Other constipation; I95.9 Hypotension, unspecified; K52.9 Noninfective gastroenteritis and colitis, unspecified; Z88.0 Allergy status to penicillin; Z88.2 Allergy status to sulfonamides; Z87.891 Personal history of nicotine dependence; Z79.899 Other long term (current) drug therapy

== ENCOUNTER → 2019-08-27 | Outpatient (CLI) | payer MEDICARE ==
[~2019-08-27] MED LIST changes: +CARAFATE 1 GM TA1 GM PO; +CEFDINIR300 MG PO; +ELIQUIS5 MG PO; +NASACORT10.8 ML INH; +ROXICODONE15 M1 PO; +VALTREX1000 MG PO; +ZESTRIL5 MG PO
[2019-08-27 10:18] LABS: ABSOLUTE EOSINOPHILS 0.2 thou/uL (0.0-0.7); ABSOLUTE LYMPHOCYTES 2.9 thou/uL (0.8-5.3); ABSOLUTE MONOCYTES 0.6 thou/uL (0.0-1.2); BASOPHILS 0.4 %; EOSINOPHILS 3.2 %; HEMATOCRIT 36.8 % (37.0-47.0); HEMOGLOBIN 12.2 gm/dL (12.0-15.0); LYMPHOCYTES 42.8 %; MCH 29.1 pg (26.0-34.0); MCHC 33.2 g/dL (28.0-37.0); MCV 87.7 fL (80.0-100.0); MONOCYTES 8.9 %; MPV 7.2 fl. (7.2-11.1); NUCLEATED RBCS 0 /100WBC; PLATELET COUNT* 341 thou/uL (150-400); POLYS 44.7 %; RDW-CV 13.1 % (10.5-14.5); WBC 6.8 thou/uL (4.0-11.0)
[2019-08-27 10:45] LABS: ALBUMIN 3.8 g/dL (3.4-5.0); CALCIUM 8.8 mg/dL (8.5-10.1); CREATININE 0.7 mg/dL (0.6-1.3); POTASSIUM 4.1 mmol/L (3.5-5.1); TOTAL BILIRUBIN 0.3 mg/dL (<0.1-1.0); TOTAL PROTEIN 6.6 g/dL (6.4-8.2)
== END ==
LOC: M.LAB 09:52 → M.CT 11:00
PROVIDERS: Family Medicine
DX: R07.9 Chest pain, unspecified (principal)

== ENCOUNTER → 2019-10-09 | Outpatient (CLI) | payer MEDICARE ==
[2019-10-09 14:57] LABS: APTT 30.6 Seconds (25.0-31.3); INR 1.1; PROTIME 11.8 Seconds (9.20-11.50)
== END ==
LOC: M.LAB 12:37
PROVIDERS: ATTEND Family Medicine
DX: Z51.81 Encounter for therapeutic drug level monitoring (principal); Z86.711 Personal history of pulmonary embolism